=== PATIENT | female | born 1980 | race Two or more races ===

== ENCOUNTER 2017-10-04 04:30 | Emergency (ER) | payer OTHER ==
[~2017-10-04] VITALS: Ht 152.4 cm; Wt 67.6 kg
[2017-10-04] MEDS ORDERED: OSEL75CA PO (06:38)
[2017-10-04] MEDS ORDERED: ZYRTEC10 MG PO (06:38)
== END 2017-10-04 06:43 | disposition home or self-care (01) ==
LOC: ER 04:30
DX: B34.9 Viral infection, unspecified (principal)

== ENCOUNTER 2018-01-14 18:37 | Outpatient (CLI) | payer OTHER ==
[~2018-01-14 18:37] MED LIST: OSEL75CA PO; ZYRTEC10 MG PO
[2018-01-14] MEDS ORDERED: OBSTETRIX EC C1 EACH PO (18:58)
[2018-01-14] MEDS ORDERED: IRON18 MG PO (18:59)
[2018-01-14] MEDS ORDERED: ZANTAC300 MG PO (18:59)
== END 2018-01-15 13:38 | disposition home or self-care (01) ==
LOC: OBS/DEL 18:37
DX: O23.42 Unspecified infection of urinary tract in pregnancy, second trimester (principal); Z34.82 Encounter for supervision of other normal pregnancy, second trimester; O60.02 Preterm labor without delivery, second trimester

== ENCOUNTER 2018-03-23 10:47 | Outpatient (CLI) | payer OTHER ==
[~2018-03-23 10:47] MED LIST changes: +IRON18 MG PO; +OBSTETRIX EC C1 EACH PO; +ZANTAC300 MG PO
== END 2018-03-23 12:12 | disposition home or self-care (01) ==
LOC: NST 10:47
DX: Z34.83 Encounter for supervision of other normal pregnancy, third trimester (principal)

== ENCOUNTER 2018-03-31 16:29 | Inpatient (IN) | payer OTHER ==
[~2018-03-31] VITALS: Ht 152.4 cm; Wt 1.8 kg
[2018-04-05] MEDS ORDERED: SURFAK240 M1 PO (18:51)
[2018-04-05] MEDS ORDERED: PERCOCET 5-3251 EACH PO (18:51)
== END 2018-04-05 18:53 | disposition home or self-care (01) | DRG 766 ==
LOC: LDR 16:29 → OB/GYN 04-02 17:00
PROVIDERS: Specialist
PROC: 4A1HXCZ Monitoring of Products of Conception, Cardiac Rate, External Approach (ICD-10-PCS; 2018-03-31)
PROC: 0UB70ZZ Excision of Bilateral Fallopian Tubes, Open Approach (ICD-10-PCS; 2018-04-02)
PROC: 4A033R1 Measurement of Arterial Saturation, Peripheral, Percutaneous Approach (ICD-10-PCS; 2018-04-02)
PROC: 10D00Z1 Extraction of Products of Conception, Low, Open Approach (ICD-10-PCS; principal; 2018-04-02 16:00)
DX: O36.5930 Maternal care for other known or suspected poor fetal growth, third trimester, not applicable or unspecified (principal); Z37.0 Single live birth; Z3A.36 36 weeks gestation of pregnancy; Z30.2 Encounter for sterilization